=== PATIENT | male | born 1990 | race Caucasian/White ===

== ENCOUNTER 2018-07-23 20:21 | Emergency (ER) | payer OTHER ==
[2018-07-23 20:28] VITALS: BP 136/76; PULSE 70; RESP 16; TEMP 98.4
--- NOTE | 2018-07-23 20:43 | ED ---
Fall HPI - General Chief Complaint: Fall Stated Complaint: [facility] tRIP AND FALL Time Seen by Provider: 07/23/18 20:36 Source: patient, RN notes reviewed, old records reviewed Mode of arrival: ambulatory - History of Present Illness Initial Comments: Patient is a pleasant 27-year-old male who presents measurements today with complaints of slip and fall down 2 stairs. He reports that he did this at work. He complains of no pain at this time. His works and sent him here for evaluation. Patient states that he caught himself after falling down 2 stairs. He denies any back pain external knee pain. No head injury or loss consciousness. - Related Data Allergies Allergy/AdvReac Type Severity Reaction Status Date / Time No Known Allergies Allergy Verified 07/23/18 20:28 Review of Systems ROS Statement: Those systems with pertinent positive or pertinent negative responses have been documented in the HPI. ROS Other: All systems not noted in ROS Statement are negative. Past Medical History Past Medical History: No Reported History History of Any Multi-Drug Resistant Organisms: None Reported Past Surgical History: No Surgical Hx Reported Past Psychological History: No Psychological Hx Reported Smoking Status: Never smoker Past Alcohol Use History: Rare Past Drug Use History: None Reported General Exam - General Exam Comments Initial Comments: Well apearing 27-year-old male. No acute distress. General: Well appearing, well nourished, in no distress. Oriented x 3, normal mood and affect . Ambulating without difficulty. Skin: Good turgor, no rash, unusual bruising or prominent lesions Hair: Normal texture and distribution. HEENT: Head: Normocephalic, atraumatic, no visible or palpable masses, depressions, or scaring. Eyes: Visual acuity intact, conjunctiva clear, sclera non-icteric, EOM intact, PERRL. Ears: EACs clear, TMs translucent & cone of light visualized. hearing intact. Nose: No external lesions, mucosa non-inflamed, septum and turbinates normal Mouth: Mucous membranes moist, no mucosal lesions. Teeth/Gums: No obvious caries or periodontal disease. No gingival inflammation or significant resorption. Pharynx: Mucosa non-inflamed, no tonsillar hypertrophy or exudate Neck: Supple, without lesions, bruits, or adenopathy, thyroid non-enlarged and non-tender Heart: No cardiomegaly or thrills; regular rate and rhythm, no murmur or gallop Lungs: Clear to auscultation and percussion Abdomen: Bowel sounds normal, no tenderness, organomegaly, masses, or hernia Back: Spine normal without deformity or tenderness, no CVA tenderness Extremities: No amputations or deformities, cyanosis, edema or varicosities, peripheral pulses intact Musculoskeletal: Normal gait and station. No misalignment, asymmetry, crepitation, defects, tenderness, masses, effusions, decreased range of motion, instability, atrophy or abnormal strength or tone in the head, neck, spine, ribs , pelvis or extremities. Neurologic: CN 2-12 normal. Sensation to pain, touch, and proprioception normal. DTRs normal in upper and lower extremities. No pathologic reflexes. Psychiatric: Oriented X3, intact recent and remote memory, judgment and insight , normal mood and affect. Limitations: no limitations Course Vital Signs 07/23/18 20:25 Temperature 98.4 F Pulse Rate 70 Respiratory 16 Rate Blood Pressure 136/76 O2 Sat by Pulse 97 Oximetry Medical Decision Making - Medical Decision Making This is a 27-year-old male since after slip and fall. Patient appears well. He has no pain in extremities. No head injury. I discussed this time no need for radiation for x-rays of his no pain either. He is ambulatory without difficulty. All questions answered return parameters were discussed. Disposition Clinical Impression: Fall (on) (from) other stairs and steps, initial encounter Disposition: HOME SELF-CARE Condition: Good Instructions (If sedation given, give patient instructions): Fall Prevention ( ED) Additional Instructions: Motrin and Tylenol for pain. Follow-up with PCP. Return to emergency department if any alarming signs or symptoms occur. Patient can return to work. Is patient prescribed a controlled substance at d/c from ED?: No Referrals: None,Stated [Primary Care Provider] - 1-2 days Time of Disposition: 20:43
== END 2018-07-23 20:55 | disposition home or self-care (01) ==
LOC: EC 20:21
DX: Z04.3 Encounter for examination and observation following other accident (principal); W10.9XXA Fall (on) (from) unspecified stairs and steps, initial encounter; Y92.69 Other specified industrial and construction area as the place of occurrence of the external cause; Y99.0 Civilian activity done for income or pay
CPT/HCPCS: 99283

== ENCOUNTER → 2020-01-16 | Outpatient (CLI) | payer BC | END | disposition home or self-care (01) | LOC: LABWHC1 12:59 | PROVIDERS: ATTEND Physician Assistant | DX: Z20.828 Contact with and (suspected) exposure to other viral communicable diseases (principal) | CPT/HCPCS: U0003; C9803 ==